=== PATIENT | male | born 1985 | race Caucasian/White ===

== ENCOUNTER 2019-04-04 19:30 | Inpatient (IN) | payer MEDICAID ==
[~2019-04-04] VITALS: Ht 175.3 cm; Wt 74.8 kg
[2019-04-04 19:40] VITALS: BP 128/71
--- NOTE | 2019-04-04 19:40 | NUR ---
PT AMBULATORY TO ER BED 5, CLOTHING REMOVED, PT IN HOSPITAL GOWN, BELONGINGS GIVEN TO SECURITY, ER MD AWARE OF PT STATUS.
--- NOTE | 2019-04-04 19:53 | NUR ---
LAB AT BEDSIDE.
[2019-04-04 20:11] LABS: BASOPHILS # (AUTO) 0.1 K/uL (0.00-0.22); BASOPHILS % (AUTO) 0.7 % (0.0-2.0); EOSINOPHILS # (AUTO) 0.1 K/uL (0-0.4); EOSINOPHILS % (AUTO) 0.9 % (0.0-4.0); HEMOGLOBIN 14.7 g/dL (12.0-18.0); LYMPHOCYTES # (AUTO) 3.1 K/uL (2.0-11.5); LYMPHOCYTES % (AUTO) 35.1 % (20.5-51.1); MEAN CORPUSCULAR HEMOGLOBIN 27 pg (27-31); MEAN CORPUSCULAR HGB CONC 34 g/dL (33-37); MEAN CORPUSCULAR VOLUME 79.3 fL (80-94); MONOCYTES # (AUTO) 0.6 K/uL (0.8-1.0); MONOCYTES % (AUTO) 7.3 % (1.7-9.3); PLATELET COUNT (AUTO) 315 K/uL (140-450); RED BLOOD CELL COUNT(AUTO) 5.43 MIL/uL (4.20-6.10); RED CELL DISTRIBUTION WIDTH 13.7 % (11.6-13.7); WHITE BLOOD COUNT (AUTO) 8.9 K/uL (4.8-10.8)
--- NOTE | 2019-04-04 20:12 | NUR ---
TELEPSYCH REQUEST SENT
--- NOTE | 2019-04-04 20:13 | NUR ---
pt provided with water, states he is unable to urinate at this time.
--- NOTE | 2019-04-04 20:16 | NUR ---
RN PERFORMING EKG AT BEDSIDE.
[2019-04-04 20:25] LABS: ANION GAP 13.8 (8-16); CARBON DIOXIDE 24.1 mmol/L (21-32); CHLORIDE 107 mmol/L (98-107); CREATININE 1.1 mg/dL (0.7-1.3); GFR ARICAN-AMERICAN 99 mL/min (>90); GLUCOSE 99 mg/dL (74-106); POTASSIUM 3.9 mmol/L (3.5-5.1); SODIUM SERUM 141 mmol/L (136-145); UREA NITROGEN, BLOOD 11 mg/dL (7-18)
[2019-04-04 20:30] LABS: ALBUMIN 3.6 g/dL (3.4-5.0); ASPARTATE AMINOTRANSFERASE 11 U/L (15-37); TOTAL BILIRUBIN 0.5 mg/dL (0.0-1.0)
--- NOTE | 2019-04-04 20:30 | NUR ---
pt bib self c/o SI, pt states he went to disability office today and it "went bad" and now he feels stressed out and wants to hurt himself by "maybe use a gun". pt has no specific plan but feels he wants to harm himself. pt states he has prior feelings of harming himself. pt has hx of hiv, hep. c, anxiety and depression. pt a&ox4.
[2019-04-04 20:32] LABS: ACETAMINOPHEN < 0.5 ug/ml (10-30); SALICYLATE < 2.8 mg/dL (2.8-20.0)
--- NOTE | 2019-04-04 20:35 | NUR ---
pt reports meth use , last time was 2 days ago pt reports.
[2019-04-04] MEDS ORDERED: BICT1TAB PO (20:39)
[2019-04-04] MEDS ORDERED: BUPR200T1 PO (20:39)
[2019-04-04] MEDS ORDERED: ATA25 PO (20:39)
[2019-04-04] MEDS ORDERED: CLON1TAB PO (20:39)
[2019-04-04] MEDS ORDERED: TRAZ-344 PO (20:39)
--- NOTE | 2019-04-04 20:44 | NUR ---
SPOKE WITH DR THOMPSON FOR REPORT ON PT. WILL CALL TO SPEAK WITH PT VIA VIDEOCHAT.
[2019-04-04 21:25] LABS: BARBITURATE, URINE NEG. ng/ml (NEG <=200); BENZODIAZEPINE, URINE NEG. ng/mL (NEG <=200); CANNABINOID, URINE NEG. ng/mL (NEG <=50); COCAINE, URINE NEG. ng/mL (NEG <=300); OPIATE, URINE NEG. ng/mL (NEG <=2000); PHENCYCLIDINE SCREEN,URINE NEG. ng/mL (NEG <=25)
--- NOTE | 2019-04-04 22:00 | NUR ---
[facility] at bedside to evaluate pt.
--- NOTE | 2019-04-04 22:33 | NUR ---
Packet along with [id number] has been recieved. Call Center will begin calling for bed placement for patient.
--- NOTE | 2019-04-04 22:50 | NUR ---
Called the following contracted psych facilities for bed placement. [facility] TE, spoke with Allison. No beds available tonight, packet was faxed for wait list. [facility], spoke with [facility]. No beds available alon. [facility], called and no answer, no answering machine. [facility], spoke with Juan C. They are short staffed and no beds available tonight. Requested for the Call Center to call back tomorrow morning for pending discharges and to fax chart at that time. [facility], spoke with Zoie. No beds available tonight. [facility], spoke with Maisha. No beds available at all tonight and requested to call back tomorrow morning for pending discharges. [facility], spoke with Alonso. They are maxed out at this time and can not accept anymore patients. [facility], spokew maira Best. Possible bed, packet was faxed over to [phone] for review. Call Center will notify [facility] if a bed becomes available for patient.
--- NOTE | 2019-04-04 23:07 | NUR ---
pt in bed resting arousable to verbal stimuli, sitter at bedside.
--- NOTE | 2019-04-05 01:14 | NUR ---
SKYLAR POSADAS CALLED FOR A BED. BED 109A GIVEN.
[2019-04-05] MEDS ORDERED: DOCUSATE SODIUM 100 MG GELCAP PO PRN (01:15)
[2019-04-05] MEDS ORDERED: ONDANSETRON 4 MG/2 ML VIAL IM/IVP PRN (01:15)
[2019-04-05 01:27] LABS: APPEARANCE,URINE CLEAR (CLEAR); BILIRUBIN,URINE NEGATIVE (NEGATIVE); BLOOD, URINE NEGATIVE (NEGATIVE); COLOR,URINE YELLOW (YELLOW); LEUKOCYTE ESTERASE ,URINE NEGATIVE (NEGATIVE); NITRITE, URINE NEGATIVE (NEGATIVE); UGLUCOSE NEGATIVE (NEGATIVE)
--- NOTE | 2019-04-05 01:35 | NUR ---
Patient will be admitted to care of Dr. Anaya. Admited to MS. Will go to room 109A. Belongings list completed. Report to SKYLAR Joiner.
[2019-04-05 01:40] VITALS: BP 122/67
--- NOTE | 2019-04-05 01:40 | NUR ---
RECEIVED FROM ED VIA WHEELCHAIR, PT. A, A, O X 4. PT AMBULATORY, STEADY GAIT TOWARDS BED. PT WITH L FA G 22, IV SITE PATENT AND INTACT. POC DISCUSSED. CALL LIGHTS WITHIN REACH.
[2019-04-05] MEDS ORDERED: hydrOXYzine HCL 25 MG TAB PO PRN (01:45)
[2019-04-05 01:46] LABS: CHOL/HDL RATIO 3.5 (1-4.5); MAGNESIUM 1.9 mg/dL (1.8-2.4); PHOSPHORUS 4.5 mg/dL (2.5-4.9); THYROID STIMULATING HORMONE 1.53 uIU/mL (0.34-3.74)
[2019-04-05] MEDS ORDERED: MULT1SGL58 PO (01:48)
[2019-04-05] MEDS ORDERED: OMEP20TC12 PO (01:48)
--- NOTE | 2019-04-05 01:55 | NUR ---
ASSESSED PT, INTERVIEWED, SKIN ASSESSMENT DONE INTACT.
[2019-04-05] MEDS ORDERED: buPROPion 150 MG TABER PO SCH (02:30)
[2019-04-05] MEDS ORDERED: clonazePAM 0.5 MG TAB PO SCH ×2 (03:00→21:00)
[2019-04-05] MEDS ORDERED: traZODone 50 MG TAB PO SCH ×2 (03:00→21:00)
--- NOTE | 2019-04-05 03:12 | NUR ---
Spoke with [facility] and they will hold the patients packet for the morning for review.
[2019-04-05 04:00] VITALS: BP 122/65
[2019-04-05 04:07] LABS: PROTHROMBIN TIME 9.4 secs (10.8-13.4)
--- NOTE | 2019-04-05 07:25 | NUR ---
RECEIVED ENDORSEMENT FROM [facility] [employer] MAINTENANCE NURSE. PATIENT IS AAOX4, LIBERIAN SPEAKING. RESPIRATIONS ARE EVEN AND UNLABORED ON ROOM AIR. LEFT FA 20 G INTACT AND SL. PATIENT DENIES ANY PAIN AT THIS TIME OR THOUGHTS OF HARMING SELF. PLAN OF CARE WAS REVIEWED WITH PATIENT. PATIENT VERBALIZED UNDERSTANDING. SAFETY MEASURES IN PLACE, SITTER AT BEDSIDE.
[2019-04-05 08:00] VITALS: BP 107/60
--- NOTE | 2019-04-05 08:02 | NUR ---
PATIENT HAS BEEN SCREENED AND CATEGORIZED LOW NUTRITION RISK. PATIENT WILL BE SEEN WITHIN 7 DAYS OF ADMISSION. 04/11/[address]
[2019-04-05] MEDS ORDERED: NICOTINE TRANSD SYS 14 MG/24 HR PATCH TD SCH (09:00)
[2019-04-05] MEDS ORDERED: NON-FORMULARY ITEM (Multivitamin (Multivitamins) 1 CAP) PO SCH (09:00)
[2019-04-05] MEDS ORDERED: MULTIVITAMIN 1 TAB PO SCH (09:00)
[2019-04-05] MEDS ORDERED: PANTOPRAZOLE 40 MG TABEC PO SCH (09:00)
[2019-04-05] MEDS ORDERED: NON-FORMULARY ITEM (Bictegrav/Emtricit/Tenofov Ala (Biktarvy 50-200-25 mg Tablet) 1 EACH) PO SCH (09:00)
[2019-04-05] MEDS ORDERED: NON-FORMULARY ITEM (Omeprazole (Omeprazole) 1 TAB) PO SCH (09:00)
--- NOTE | 2019-04-05 09:45 | NUR ---
ADMINISTERED SCHEDULED MEDICATIONS. PATIENT DENIES ANY THOUGHTS OF HARMING SELF OR PAIN. SITTER AT BEDSIDE. NO OTHER NEEDS AT THIS TIME.
--- NOTE | 2019-04-05 10:12 | NUR ---
ENDORSED TO SKYLAR VEGA. PATIENT IS STABLE AT THIS TIME.
--- NOTE | 2019-04-05 10:42 | NUR ---
Contacted the following facilities: [facility]: [facility] no beds available today, packet is on file [facility]: states they may have beds, requested packet to be faxed. [facility]: No beds at this time. [facility]: Packet on file for review, will contact if pt accepted and beds available
[2019-04-05] MEDS: ACETAMINOPHEN 325 MG TAB PO PRN ×2 (12:56→17:56)
--- NOTE | 2019-04-05 14:14 | NUR ---
Packet faxed to Vicente at [facility] for review.
--- NOTE | 2019-04-05 14:17 | NUR ---
Packet faxed to [facility] for review.
--- NOTE | 2019-04-05 14:20 | NUR ---
Called [facility], s/w Teresita. No beds.
--- NOTE | 2019-04-05 14:21 | NUR ---
Called [facility], s/w Meri. No beds.
--- NOTE | 2019-04-05 14:23 | NUR ---
Called [facility], s/w Katherin. No beds.
--- NOTE | 2019-04-05 14:24 | NUR ---
Called [facility]. No answer, forwarded to voicemail of Monse Smith. Inbox full.
[2019-04-05 16:00] VITALS: BP 123/79
--- NOTE | 2019-04-05 16:47 | NUR ---
CALLED AND LEFT MESSAGE FOR SISTER LIEN @ [phone] RE TRANSFER.
--- NOTE | 2019-04-05 16:53 | NUR ---
GAVE REPORT TO CODY RN AT [facility] IN [place]. TRANSPORTATION ETA 183. CALLED JENNY AND NOTIFIED HIM OF ETA.
--- NOTE | 2019-04-05 17:54 | NUR ---
DC INSTRUCTIONS GIVEN TO PT. PT VERBALIZED UNDERSTANDING. CALLED SECURITY TO BRING UP CLOTHES AND PERSONAL BELONGINGS. WILL AWAIT TRANSPORTATION.
--- NOTE | 2019-04-05 18:45 | NUR ---
PICKED UP BY 2 EMT'S . PT IN STABLE CONDITION. ALL PERSONAL BELONGINGS WITH PT.
[2019-04-05] MEDS ORDERED: BUPROPION HCL PO SCH (21:00)
== END 2019-04-05 18:45 | DRG 817 ==
LOC: MED 19:30 → MTU 04-05 01:11
PROVIDERS: ADMIT General Practice; ATTEND General Practice
DX: T43.622A Poisoning by amphetamines, intentional self-harm, initial encounter (principal); G92 Toxic encephalopathy; F32.9 Major depressive disorder, single episode, unspecified; F41.1 Generalized anxiety disorder; Z21 Asymptomatic human immunodeficiency virus [HIV] infection status; E78.2 Mixed hyperlipidemia; Z79.899 Other long term (current) drug therapy; Y92.89 Other specified places as the place of occurrence of the external cause
CPT/HCPCS: 36415; 80053; 80305; 81003; 83036; 83690; 83735; 83880; 84100; 84134; 84443; 85025; 85610; 85730; 87081; 99285; G0480; G0482